=== PATIENT | female | born 1945 | race Two or more races ===

== ENCOUNTER 2023-07-15 08:45 | Outpatient (AMB) | payer MEDICARE, MEDICAID, SELFPAY ==
--- NOTE | 2023-07-15 09:03 | MHC.OFFWIV ---
Intake Vital Signs 07/15/23 09:05 Height 5 ft Weight 166 lb BMI 32.4 BP 138/76 Blood Pressure Location Lt brachial Position Sitting Pulse 71 Pulse Source Pulse Oximeter Temp 97.8 F Temp Source Temporal Artery Scan Pulse Oximetry (%) 96 Intake Visit Reasons: EST/cough for x2 weeks(lobby masked) Intake Note: pt is here for c/o cough for 2x weeks, chest congestion Patient Tobacco Use Status: Never used Tobacco Allergies No Known Allergies [No Known Allergies*] Allergy (Verified 07/15/23 09:46) Medication List - Last Reconciled 07/15/23 by Zhen Hernandez MD blood sugar diagnostic ([employer] Ultra Test strips) As directed escitalopram oxalate mg PO insulin glargine (Lantus Solostar U-100 Insulin) 44 units subcut BEDTIME lancets ([employer] UltraSoft Lancets) As directed latanoprost 0.005% 1 drp ophthalmic (eye) BEDTIME liraglutide (Victoza 3-Axel) 1.8 mg subcut DAILY metformin 1,000 mg PO BID olanzapine 5 mg PO DAILY pen needle, diabetic (BD Damaris 2nd Gen Pen Needle) As directed simvastatin 20 mg PO BEDTIME Do you need a note to return to daycare/school/sports/work: Yes HPI EST/cough for x2 weeks(lobby masked) HPI Details Patient presents for a sick visit. Reporting symptoms of sinus congestion, sore throat and difficulty swallowing. Low-grade fever. No family member is sick. No recent travel. Patient reports symptoms of malaise and fatigue. PFSH Social History Patient Tobacco Use Status: Never used Tobacco Physical Exam Vital Signs: Last Vital Signs Temp 97.8 F 07/15/23 09:05 Pulse 71 07/15/23 09:05 BP 138/76 07/15/23 09:05 Pulse Ox 96 07/15/23 09:05 BMI result Body Mass Index 32.4 Const General: cooperative and healthy appearing Nutritional Appearance: well nourished Orientation/consciousness: patient oriented x3 Limitations: no limitations HEENT Head: Yes normal to inspection Eyes General: appearance normal, both eyes and all related structures Neck Neck: Yes normal visual inspection Chest Chest palpation & inspection: normal palpation of entire chest wall Resp Effort & Inspection: normal respiratory effort Neuro General: patient oriented x3 Assessment & Plan Assessment & Plan (1) Upper respiratory tract infection: Code(s): J06.9 - Acute upper respiratory infection, unspecified Plan Antibiotics ordered. Increase fluid intake. Tylenol for aches and pains. If symptoms worsen, follow-up here for a recheck. Coding Level of Care Code Est Pt Level 3 (04855) Diagnoses Upper respiratory tract infection J06.9
[2023-07-15 09:05] VITALS: BP 138/76; PULSE 71; TEMP 36.6; O2SAT 96; BMI 32.4
== END 2023-07-15 09:52 | disposition home or self-care (01) ==
PROVIDERS: PCP Internal Medicine; Visit Provider Internal Medicine
DX: J06.9 Acute upper respiratory infection, unspecified (principal)
CPT/HCPCS: 99213